=== PATIENT | male | born 1975 | race Two or more races ===

== ENCOUNTER 2021-11-21 09:24 | Emergency (ER) | payer MEDICAID ==
[~2021-11-21] VITALS: Ht 170.2 cm; Wt 97.0 kg
[2021-11-21] MEDS ORDERED: LORAZEPAM 1MG TABLET PO SCH (09:45)
[2021-11-21] MEDS ORDERED: OLANZAPINE 10MG TABLET PO SCH (09:45)
[2021-11-21 17:15] VITALS: BP 112/68
== END 2021-11-21 17:21 | disposition home or self-care (01) ==
LOC: ER 09:39
DX: F60.0 Paranoid personality disorder (principal); F20.9 Schizophrenia, unspecified; F15.10 Other stimulant abuse, uncomplicated; F41.9 Anxiety disorder, unspecified; F31.9 Bipolar disorder, unspecified
CPT/HCPCS: 99285

== ENCOUNTER 2021-12-29 19:53 | Emergency (ER) | payer MEDICAID, OTHER ==
[~2021-12-29] VITALS: Ht 172.7 cm; Wt 100.0 kg
[2021-12-29 20:00] VITALS: BP 146/84
[2021-12-29] MEDS ORDERED: LORAZEPAM 1MG TABLET PO ONE (21:00)
[2021-12-29 21:14] LABS: BASOPHILS % 0.9 % (0.0-2.0); EOSINOPHILS % 0.1 % (0.0-5.0); HEMATOCRIT. 41.5 % (42.0-52.0); HEMOGLOBIN. 14.5 g/dL (14.0-18.0); LYMPHOCYTES % 19.4 % (20.0-50.0); MEAN CORPUSCULAR HEMOGLOBIN 32.1 pg (28.0-32.0); MEAN CORPUSCULAR VOLUME 91.9 fL (80.0-94.0); MEAN PLATELET VOLUME 8.9 fl (7.4-10.4); MONOCYTES % 9.4 % (2.0-8.0); NEUTROPHILS % 70.2 % (40.0-76.0); PLATELET 221 x1000/uL (130-400); RED BLOOD CELL COUNT 4.52 mill/uL (4.7-6.1); RED CELL DISTRIBUTION WIDTH 13.8 % (11.6-14.6)
[2021-12-29 21:20] LABS: CHLORIDE 92 mEq/L (98-107)
[2021-12-29] MEDS ORDERED: POTASSIUM CHLORIDE 20MEQ TABLET SR PO ONE (21:45)
== END 2021-12-29 23:49 | disposition home or self-care (01) ==
LOC: ER 19:53
DX: E87.6 Hypokalemia (principal); F41.9 Anxiety disorder, unspecified; F31.9 Bipolar disorder, unspecified; F20.9 Schizophrenia, unspecified; F15.10 Other stimulant abuse, uncomplicated
CPT/HCPCS: 36415; 71045; 80053; 84484; 85025; 93005; 99285

== ENCOUNTER 2021-12-30 00:01 | Emergency (ER) | payer OTHER ==
[~2021-12-30] VITALS: Ht 165.1 cm; Wt 122.0 kg
[2021-12-30 00:31] LABS: EOSINOPHILS % 0.2 % (0.0-5.0); HEMATOCRIT. 42.7 % (42.0-52.0); HEMOGLOBIN. 14.9 g/dL (14.0-18.0); LYMPHOCYTES % 25.5 % (20.0-50.0); MEAN CORPUSCULAR HEMOGLOBIN 32.2 pg (28.0-32.0); MEAN CORPUSCULAR VOLUME 92.2 fL (80.0-94.0); MONOCYTES % 11.5 % (2.0-8.0); NEUTROPHILS % 61.8 % (40.0-76.0); PLATELET 238 x1000/uL (130-400); RED BLOOD CELL COUNT 4.63 mill/uL (4.7-6.1)
[2021-12-30 00:44] LABS: CHLORIDE 96 mEq/L (98-107)
[2021-12-30 00:48] LABS: ETHANOL BLOOD < 10 mg/dL
[2021-12-30 02:39] LABS: CLARITY URINE CLEAR (CLEAR); COLOR URINE YELLOW (YELLOW); KETONES URINE TRACE (NEGATIVE); LEUKOCYTE ESTERASE URINE NEGATIVE (NEGATIVE); NITRITE URINE NEGATIVE (NEGATIVE); OCCULT BLOOD URINE NEGATIVE (NEGATIVE); PROTEIN URINE NEGATIVE (NEGATIVE); SPECIFIC GRAVITY URINE 1.002 (1.005-1.030)
[2021-12-30 03:21] LABS: *AMPHETAMINES SCREEN URINE PRESUMTIVE POSITIVE (NEGATIVE); *BARBITURATES SCREEN URINE NEGATIVE (NEGATIVE); CANNABINOID URINE SCREEN PRESUMTIVE POSITIVE (NEGATIVE)
[2021-12-30 03:22] LABS: *BENZODIAZEPINES SCREEN URINE NEGATIVE (NEGATIVE); *COCAINE SCREEN URINE NEGATIVE (NEGATIVE); METHADONE URINE SCREEN NEGATIVE (NEGATIVE); OPIATES URINE SCREEN NEGATIVE (NEGATIVE); PHENCYCLIDINE URINE SCREEN NEGATIVE (NEGATIVE)
[2021-12-30] MEDS: POTASSIUM CHLORIDE 20MEQ TABLET SR PO ONE (08:35)
[2021-12-30] MEDS ORDERED: POTASSIUM CHLORIDE 20MEQ TABLET SR PO ONE (09:00)
[2021-12-30 11:18] VITALS: BP 115/62
== END 2021-12-30 11:20 | disposition home or self-care (01) ==
LOC: ER 00:01
DX: R45.851 Suicidal ideations (principal); E87.1 Hypo-osmolality and hyponatremia; E87.6 Hypokalemia; F15.10 Other stimulant abuse, uncomplicated; I10 Essential (primary) hypertension; Z98.890 Other specified postprocedural states; Z86.59 Personal history of other mental and behavioral disorders
CPT/HCPCS: 36415; 80053; 80305; 80307; 80320; 80329; 81003; 83735; 85025; 99285; G0480

== ENCOUNTER 2022-02-27 23:53 | Emergency (ER) | payer OTHER ==
[~2022-02-27] VITALS: Ht 172.7 cm; Wt 100.0 kg
[2022-02-28] MEDS ORDERED: ASPIRIN 325MG EC TABLET PO ONE (01:00)
[2022-02-28 01:16] LABS: CHLORIDE 108 mEq/L (98-107)
[2022-02-28 01:27] LABS: ETHANOL BLOOD < 10 mg/dL
[2022-02-28 01:29] LABS: MEAN CORPUSCULAR HEMOGLOBIN 32.3 pg (28.0-32.0)
[2022-02-28 01:40] LABS: BASOPHILS % 1.1 % (0.0-2.0); EOSINOPHILS % 0.6 % (0.0-5.0); HEMOGLOBIN. 15.5 g/dL (14.0-18.0); LYMPHOCYTES % 18.3 % (20.0-50.0); MEAN CORPUSCULAR VOLUME 93.5 fL (80.0-94.0); MEAN PLATELET VOLUME 10.5 fl (7.4-10.4); MONOCYTES % 7.7 % (2.0-8.0); NEUTROPHILS % 72.3 % (40.0-76.0); PLATELET 162 x1000/uL (130-400); RED BLOOD CELL COUNT 4.81 mill/uL (4.7-6.1); RED CELL DISTRIBUTION WIDTH 13.4 % (11.6-14.6)
[2022-02-28] MEDS ORDERED: ZIPRASIDONE MESYLATE 20MG/VIAL IM SCH (02:30)
[2022-02-28 09:06] LABS: CLARITY URINE CLEAR (CLEAR); COLOR URINE YELLOW (YELLOW); KETONES URINE NEGATIVE (NEGATIVE); LEUKOCYTE ESTERASE URINE 1+ (NEGATIVE); NITRITE URINE NEGATIVE (NEGATIVE); OCCULT BLOOD URINE TRACE (NEGATIVE); PH URINE 5.5 (4.5-8.0); PROTEIN URINE NEGATIVE (NEGATIVE); SPECIFIC GRAVITY URINE 1.015 (1.005-1.030); UROBILINOGEN URINE 0.2 E.U./dL (0.2-1.0)
[2022-02-28 09:38] LABS: *AMPHETAMINES SCREEN URINE PRESUMTIVE POSITIVE (NEGATIVE); *BARBITURATES SCREEN URINE NEGATIVE (NEGATIVE); *BENZODIAZEPINES SCREEN URINE NEGATIVE (NEGATIVE); *COCAINE SCREEN URINE NEGATIVE (NEGATIVE); CANNABINOID URINE SCREEN PRESUMTIVE POSITIVE (NEGATIVE); METHADONE URINE SCREEN NEGATIVE (NEGATIVE); OPIATES URINE SCREEN NEGATIVE (NEGATIVE); PHENCYCLIDINE URINE SCREEN NEGATIVE (NEGATIVE)
[2022-02-28] MEDS: OLANZAPINE 5MG TABLET ODT PO SCH ×2 (09:41→17:11)
[2022-02-28 19:30] VITALS: BP 104/62
[2022-02-28] MEDS ORDERED: MIRTAZAPINE 15MG TABLET PO SCH (21:00)
== END 2022-02-28 19:50 ==
LOC: ER 23:53
DX: F12.980 Cannabis use, unspecified with anxiety disorder (principal); F25.0 Schizoaffective disorder, bipolar type; F16.90 Hallucinogen use, unspecified, uncomplicated; R45.6 Violent behavior; R45.851 Suicidal ideations; R45.1 Restlessness and agitation; R00.2 Palpitations; I10 Essential (primary) hypertension; F33.8 Other recurrent depressive disorders; Z20.822 Contact with and (suspected) exposure to COVID-19
CPT/HCPCS: 36415; 71045; 80053; 80305; 80320; 81003; 84484; 85025; 87426; 96372; 99291; C9803; J3486; U0003; U0005; G0480

== ENCOUNTER 2022-07-31 10:56 | Emergency (ER) | payer OTHER ==
[~2022-07-31] VITALS: Ht 167.6 cm; Wt 78.0 kg
[2022-07-31 12:07] LABS: BASOPHILS % 0.9 % (0.0-2.0); EOSINOPHILS % 0.1 % (0.0-5.0); HEMATOCRIT. 40.2 % (42.0-52.0); HEMOGLOBIN. 13.9 g/dL (14.0-18.0); MEAN CORPUSCULAR HEMOGLOBIN 33.2 pg (28.0-32.0); MEAN CORPUSCULAR VOLUME 95.9 fL (80.0-94.0); MEAN PLATELET VOLUME 10.1 fl (7.4-10.4); MONOCYTES % 6.5 % (2.0-8.0); NEUTROPHILS % 82.5 % (40.0-76.0); PLATELET 165 x1000/uL (130-400); RED BLOOD CELL COUNT 4.19 mill/uL (4.7-6.1); RED CELL DISTRIBUTION WIDTH 13.3 % (11.6-14.6)
[2022-07-31 12:18] LABS: CHLORIDE 88 mEq/L (98-107)
[2022-07-31 12:30] LABS: ETHANOL BLOOD < 10 mg/dL
[2022-07-31 13:45] VITALS: BP 136/82
[2022-07-31] MEDS ORDERED: POTASSIUM CHLORIDE 20MEQ TABLET SR PO ONE (14:15)
[2022-07-31 14:52] LABS: *AMPHETAMINES SCREEN URINE PRESUMTIVE POSITIVE (NEGATIVE); *BARBITURATES SCREEN URINE NEGATIVE (NEGATIVE); *BENZODIAZEPINES SCREEN URINE NEGATIVE (NEGATIVE); *COCAINE SCREEN URINE NEGATIVE (NEGATIVE); CANNABINOID URINE SCREEN PRESUMTIVE POSITIVE (NEGATIVE); CLARITY URINE CLEAR (CLEAR); COLOR URINE YELLOW (YELLOW); METHADONE URINE SCREEN NEGATIVE (NEGATIVE); OPIATES URINE SCREEN NEGATIVE (NEGATIVE); PHENCYCLIDINE URINE SCREEN NEGATIVE (NEGATIVE)
[2022-07-31 14:53] LABS: KETONES URINE 1+ (NEGATIVE); LEUKOCYTE ESTERASE URINE TRACE (NEGATIVE); NITRITE URINE NEGATIVE (NEGATIVE); OCCULT BLOOD URINE 2+ (NEGATIVE); PROTEIN URINE 1+ (NEGATIVE); UROBILINOGEN URINE 0.2 E.U./dL (0.2-1.0)
== END 2022-07-31 14:35 | disposition home or self-care (01) ==
LOC: ER 10:56
DX: G40.509 Epileptic seizures related to external causes, not intractable, without status epilepticus (principal); E11.9 Type 2 diabetes mellitus without complications; I10 Essential (primary) hypertension
CPT/HCPCS: 36415; 80053; 80305; 80307; 80320; 80329; 81003; 85025; 99283; G0480

== ENCOUNTER 2022-08-04 16:21 | Emergency (ER) | payer OTHER ==
[~2022-08-04] VITALS: Ht 170.2 cm; Wt 96.0 kg
[2022-08-04] MEDS ORDERED: SODIUM CHLORIDE 0.9% 1,000 ML IV ONE (18:00)
[2022-08-04] MEDS ORDERED: DIAZEPAM 5 MG/ML 2ML CPJ IV ONE ×2 (18:00→21:00)
[2022-08-04 18:16] LABS: BASOPHILS % 0.9 % (0.0-2.0); EOSINOPHILS % 0.2 % (0.0-5.0); HEMATOCRIT. 43.4 % (42.0-52.0); LYMPHOCYTES % 12.4 % (20.0-50.0); MEAN CORPUSCULAR HEMOGLOBIN 33.2 pg (28.0-32.0); MEAN CORPUSCULAR VOLUME 95.9 fL (80.0-94.0); MEAN PLATELET VOLUME 9.7 fl (7.4-10.4); MONOCYTES % 9.5 % (2.0-8.0); PLATELET 180 x1000/uL (130-400); RED BLOOD CELL COUNT 4.53 mill/uL (4.7-6.1); RED CELL DISTRIBUTION WIDTH 13.2 % (11.6-14.6)
[2022-08-04 18:24] LABS: CHLORIDE 98 mEq/L (98-107)
[2022-08-04 18:31] LABS: ETHANOL BLOOD < 10 mg/dL
[2022-08-04 22:42] LABS: CLARITY URINE CLEAR (CLEAR); COLOR URINE YELLOW (YELLOW); KETONES URINE NEGATIVE (NEGATIVE); LEUKOCYTE ESTERASE URINE NEGATIVE (NEGATIVE); NITRITE URINE NEGATIVE (NEGATIVE); OCCULT BLOOD URINE TRACE (NEGATIVE); PH URINE 6.5 (4.5-8.0); PROTEIN URINE NEGATIVE (NEGATIVE); SPECIFIC GRAVITY URINE 1.006 (1.005-1.030)
[2022-08-04 22:54] LABS: *AMPHETAMINES SCREEN URINE PRESUMTIVE POSITIVE (NEGATIVE); *BARBITURATES SCREEN URINE NEGATIVE (NEGATIVE); *BENZODIAZEPINES SCREEN URINE NEGATIVE (NEGATIVE); *COCAINE SCREEN URINE NEGATIVE (NEGATIVE); CANNABINOID URINE SCREEN PRESUMTIVE POSITIVE (NEGATIVE); METHADONE URINE SCREEN NEGATIVE (NEGATIVE); OPIATES URINE SCREEN NEGATIVE (NEGATIVE); PHENCYCLIDINE URINE SCREEN NEGATIVE (NEGATIVE)
[2022-08-05] MEDS: FOLIC ACID 1 MG, THIAMINE HCL 100 MG, MVI, ADULT NO.1 10 ML in DEXTROSE 5% WATER 1,000 ML IV NR ×8 (01:10→08:38)
[2022-08-05 12:30] VITALS: BP 119/68
== END 2022-08-05 13:45 | disposition home or self-care (01) ==
LOC: ER 16:21
DX: F10.239 Alcohol dependence with withdrawal, unspecified (principal); F10.229 Alcohol dependence with intoxication, unspecified; R45.851 Suicidal ideations; F15.10 Other stimulant abuse, uncomplicated; F12.10 Cannabis abuse, uncomplicated; Z91.14 Patient's other noncompliance with medication regimen; Y90.0 Blood alcohol level of less than 20 mg/100 ml
CPT/HCPCS: 36415; 80053; 80305; 80320; 81003; 83690; 85025; 96361; 96374; 96376; 99285; J3360; J3411; J3490; J7030; J7070; G0480